=== PATIENT | female | born 1985 | race African-American/Black ===

== ENCOUNTER 2016-10-11 15:16 | Emergency (ER) ==
[2016-10-11 15:22] VITALS: BP 135/86; TEMP 98.7; BMI 40.7
[2016-10-11 16:18] LABS: FLU INTERNAL QC INTERNAL QC VALID; RAPID FLU A NEGATIVE (NEGATIVE); RAPID FLU B NEGATIVE (NEGATIVE)
--- NOTE | 2016-10-11 16:28 | ED.PDOC ---
General ED Provider: Dr. SINDI MCDANIEL Chief Complaint: Sore Throat Stated Complaint: Patient c/o of sore throat for few days. Also complains of left ear ache Time Seen by Physician: 16:25 Mode of Arrival: Walk-In Information Source: Patient Exam Limitations: No limitations Primary Care Provider: JOANN LOMBARDO Nursing and Triage Documentation Reviewed and Agree: Yes EENT Complaint Exam - Throat Complaint/Exam Onset/Duration: 7 days Symptoms Are: Still present Timimg: Constant Initial Severity: Mild Current Severity: Moderate Aggravating: Reports: Eating Alleviating: Reports: None Associated Signs and Symptoms: Reports: Dysphagia. Denies: Ear drainage Uvula Midline: No Jinny-tonsillar Fluctuence: No Scarlatinaform Rash Present: No Lesions: Absent: Lip, Gums, Tongue, Buccal Mucosa, Pharynx Exanthem: Absent: Lip, Gums, Tongue, Buccal Mucosa, Pharynx Vesicles: Absent: Lip, Gums, Tongue, Buccal Mucosa, Pharynx Stridor Present: No Sinus Tenderness Present: No Tonsillar Hypertrophy Present: No Tonsillar Exudate Present: No Jinny-tonsillar Swelling Present: No Adenopathy Present: Yes (right neck ) Splenomegaly Present: No Differential Diagnoses: Mononucleosis, Pharyngitis Review of Systems - Review Of Systems Constitutional: Reports: No symptoms Eyes: Reports: No symptoms Ears, Nose, Mouth, Throat: Reports: Ear pain (Left), Mouth pain, Throat pain Respiratory: Reports: No symptoms Cardiac: Reports: No symptoms GI: Reports: No symptoms : Reports: No symptoms Musculoskeletal: Reports: No symptoms Skin: Reports: No symptoms Neurological: Reports: No symptoms Endocrine: Reports: No symptoms Hematologic/Lymphatic: Reports: No symptoms All Other Systems: Reviewed and Negative Past Medical History - Past Medical History Previously Healthy: Yes Endocrine: Reports: DM 2 Cardiovascular: Reports: Hypertension Respiratory: Reports: None Hematological: Reports: None Gastrointestinal: Reports: None Genitourinary: Reports: None Neuro/Psych: Reports: Anxiety, Depression, Bipolar Disorder Musculoskeletal: Reports: None Cancer: Reports: None Last Menstrual Period: 09/30/16 - Surgical History General Surgical History: Reports: Unknown - Family History Family History: Reports: Unknown - Social History Smoking Status: Never smoker Hx Substance Use: No Alcohol Screening: None - Immunizations Tetanus Shot up to Date: Yes Physical Exam - Physical Exam Appearance: Obese Ill-appearing: Moderate Pain Distress: Moderate Eyes: PAIGE, EOMI, Conjunctiva clear ENT: Ears normal, Nose normal, Oropharynx normal Neck: Supple Respiratory: Airway patent, Breath sounds clear, Breath sounds equal, Respirations nonlabored Cardiovascular: Tachycardia GI/: Soft, Nontender, No masses, Bowel sounds normal, No Organomegaly Skin: Warm, Dry, Normal color Neurological: Sensation intact, Motor intact, Alert, Oriented Psychiatric: Anxious Critical Care Note - Critical Care Note Total Time (mins): 0 Course - Course Orders, Labs, Meds: Lab Review 10/11/16 15:59 Influenza A (Rapid) Negative Influenza B (Rapid) Negative Orders Category Date Time Status FLU A & B RAPID TEST [RAPID FLU A/B] Stat LAB 10/11/16 15:59 Completed MOLECULAR GROUP A STREP Stat LAB 10/11/16 15:59 Results STREP SCREEN Stat LAB 10/11/16 15:59 Results Vital Signs: Temp Pulse Resp BP Pulse Ox 10/11/16 15:17 98.7 F 120 H 20 135/86 98 Departure - Departure Time of Disposition: 16:26 Disposition: HOME SELF-CARE Discharge Problem: Sore throat symptom Instructions: Pharyngitis (ED) Condition: Stable Pt referred to PMD for follow-up: Yes Additional Instructions: Push fluids Take antibiotics as prescribed. Follow up with PCP in 3 days Prescriptions: Amoxicillin [Amoxil] 500 mg PO TID #30 capsule Allergies/Adverse Reactions: Allergies celecoxib [From Celebrex] Adverse Reaction (Verified 10/11/16 15:23) HIVES, BREAK OUT Home Medications: Ambulatory Orders Benztropine Mesylate [Cogentin] 1 mg PO BEDTIME 10/22/13 Insulin Aspart [Novolog] 10 unit SQ TID 10/22/13 Insulin Glargine,Hum.rec.anlog [Lantus] 65 unit SQ BID 10/22/13 Lamotrigine [Lamictal] 150 mg PO BEDTIME 10/22/13 Metformin HCl [Glucophage] 500 mg PO DAILY 10/22/13 Risperidone [Risperidone Odt] 1 mg PO BID 10/22/13 Simvastatin 20 mg PO DAILY 10/22/13 Amoxicillin [Amoxil] 500 mg PO TID #30 capsule 10/11/16 Disposition Discussed With: Patient
== END 2016-10-11 16:35 | disposition home or self-care (01) ==
LOC: ED 15:16
DX: J02.9 Acute pharyngitis, unspecified (principal)
CPT/HCPCS: 87651; 87804; 87880; 99283

== ENCOUNTER 2017-06-22 08:06 | Outpatient (CLI) ==
--- NOTE | 2017-06-22 10:09 | DI ---
EXAM: Upper GI series HISTORY: Other specified symptoms and signs involving circuit or and respiratory symptoms, difficult y swallowing COMPARISON: None FINDINGS: Upper GI series was performed using barium. An anterior esophageal web is present. Esophag eal motility is normal. Esophageal caliber is normal. No filling defect is seen in the esophagus. Sma ll hiatal hernia The stomach appears grossly normal without mass lesion or ulcer. The duodenum appea rs grossly normal without mass lesion or ulcer. A 13 mm dissolvable barium pill was administered and becomes lodged in the cervical esophagus at the C6-C7 level. This replaces the patient symptoms. IMPRESSION: 1. A 13 mm dissolvable barium pill was administered and becomes lodged in the cervical esophagus at the C6-C7 level. This replaces the patient symptoms. An anterior cervical web is present and this is possibly the cause, though difficult to definitively determine. Correlation with endoscopy is recomm ended. 2. Small hiatal hernia
== END 2017-06-22 08:07 | disposition home or self-care (01) ==
LOC: RAD 08:06
PROVIDERS: ATTEND Nurse Practitioner Family
DX: R09.89 Other specified symptoms and signs involving the circulatory and respiratory systems (principal)

== ENCOUNTER 2017-06-23 12:34 | Outpatient (CLI) | END 2017-06-23 12:35 | disposition home or self-care (01) | LOC: LAB 12:34 | PROVIDERS: ATTEND Nurse Practitioner Family | DX: E11.9 Type 2 diabetes mellitus without complications (principal); Z00.00 Encounter for general adult medical examination without abnormal findings | CPT/HCPCS: 36415; 80053; 80061; 83036; 84443; 85008; 85025 ==

== ENCOUNTER 2017-07-02 17:20 | Emergency (ER) ==
[2017-07-02 17:24] VITALS: BP 174/97; TEMP 100.2; BMI 36.8
--- NOTE | 2017-07-02 18:59 | ED.PDOC ---
General Stated Complaint: Fever, chills, dry cough, sore throat, ear ache. Onset 48 hours ago. Cough non productive Time Seen by Physician: 18:55 Mode of Arrival: Walk-In Information Source: Patient Exam Limitations: No limitations Nursing and Triage Documentation Reviewed and Agree: Yes Reviewed sepsis parameters & appropriate labs ordered?: Yes <SANTOS LINDO - Last Filed: 07/02/17 18:57> System Inflammatory Response Syndrome: Not Applicable <MICHA BUTLER - Last Filed: 07/02/17 20:50> ED Provider: Dr. MICHA BUTLER Chief Complaint: Fever Primary Care Provider: JOANN LOMBARDO Sepsis Protocol: For patient's 13 years and over: Temp is 96.8 and below OR 101 and greater Pulse >90 BPM Resp >20/minute Acutely Altered Mental Status Are patient's symptoms suggestive of a new infection, such as: -Pneumonia -Skin, Soft Tissue -Endocarditis -UTI -Bone, Joint Infection -Implantable Device -Acute Abdominal Infection -Wound Infection -Meningitis -Blood Stream Catheter Infection -Unknown Respiratory Complaint Exam - Respiratory Complaint/Exam Symptoms Are: Still present Timing: Intermittent Initial Severity: Moderate Current Severity: Mild Location: Throat Character: Reports: Non-productive cough, Dry cough Aggravating: Reports: URI, Deep breaths Alleviating: Reports: Upright position Associated Signs and Symptoms: Reports: Fever, Chills, Chest pain, Sore throat History of Healthcare-Acquired Pneumonia: No Related Surgical History: Reports: None Pulmonary Embolism Risk Factors: None Cardiac Risk Factors: Reports: None Pseudomonas Risk Factors: Reports: None Tuberculosis Risk Factors: Reports: None Status Asthmaticus Risk Factors: Reports: None Home Oxygen Use: No Recent Stress Test: No Recent Echo/LV Function: No Current Antibiotic Use: No Current Asthma Medication Use: No Differential Diagnoses: URI, Influenza, Other (otitis/ strep throat) <SANTOS LINDO - Last Filed: 07/02/17 18:57> Review of Systems - Review Of Systems Constitutional: Reports: Chills, Fever, Malaise Eyes: Reports: No symptoms Ears, Nose, Mouth, Throat: Reports: Ear pain, Throat pain. Denies: Epistaxis, Mouth swelling Respiratory: Reports: Cough. Denies: Orthopnea, Short of air, Stridor, Wheezing Cardiac: Reports: No symptoms GI: Reports: No symptoms : Reports: No symptoms Musculoskeletal: Reports: No symptoms, Muscle pain Neurological: Reports: No symptoms <SANTOS LINDO - Last Filed: 07/02/17 18:57> - Review Of Systems Constitutional: Reports: No symptoms Eyes: Reports: No symptoms Ears, Nose, Mouth, Throat: Reports: No symptoms Respiratory: Reports: No symptoms Cardiac: Reports: No symptoms GI: Reports: No symptoms : Reports: No symptoms Musculoskeletal: Reports: No symptoms Skin: Reports: No symptoms Neurological: Reports: No symptoms Endocrine: Reports: No symptoms Hematologic/Lymphatic: Reports: No symptoms All Other Systems: Reviewed and Negative <MICHA BUTLER - Last Filed: 07/02/17 20:50> Past Medical History - Past Medical History Previously Healthy: Yes Endocrine: Reports: DM 2 Cardiovascular: Reports: Hypertension Respiratory: Reports: None Hematological: Reports: None Gastrointestinal: Reports: None Genitourinary: Reports: None Neuro/Psych: Reports: Anxiety, Depression, Bipolar Disorder Musculoskeletal: Reports: None Cancer: Reports: None Last Menstrual Period: 07/01/17 - Surgical History General Surgical History: Reports: Unknown - Family History Family History: Reports: Unknown - Social History Smoking Status: Never smoker Hx Substance Use: No Alcohol Screening: None - Immunizations Tetanus Shot up to Date: No <SANTOS LINDO - Last Filed: 07/02/17 18:57> Physical Exam - Physical Exam Appearance: Ill-appearing, No pain distress Ill-appearing: Mild Pain Distress: None Eyes: PAIGE, EOMI, Conjunctiva clear ENT: Ears normal (Rt TM Full and slightly injected), Oropharynx normal Respiratory: Airway patent, Breath sounds clear, Breath sounds equal (No crackles or wheezes) Cardiovascular: RRR, Pulses normal GI/: Soft, Nontender, No masses Musculoskeletal: Normal strength Skin: Warm, Dry Neurological: Sensation intact, Motor intact, Cranial nerves intact, Alert, Oriented Psychiatric: Affect appropriate, Mood appropriate <SANTOS LINDO - Last Filed: 07/02/17 18:57> Critical Care Note - Critical Care Note Total Time (mins): 15 <MICHA BUTLER - Last Filed: 07/02/17 20:50> Course - Course Hematology/Chemistry: 07/02/17 19:16 07/02/17 19:16 <MICHA BUTLER - Last Filed: 07/02/17 20:50> - Course Orders, Labs, Meds: Lab Review 07/02/17 07/02/17 07/02/17 17:50 19:16 19:16 WBC 8.82 RBC 4.68 Hgb 7.4 L Hct 26.4 L MCV 56.4 L MCH 15.8 L MCHC 28.0 L RDW Coeff of [place] 19.9 H Plt Count 379 Immature Gran % (Auto) 0.2 Neut % (Auto) 64.9 Lymph % (Auto) 26.1 [place] % (Auto) 6.3 Eos % (Auto) 2.2 Baso % (Auto) 0.3 Immature Gran # (Auto) 0.0 Neut # 5.7 Lymph # 2.3 [place] # 0.6 Eos # 0.2 Baso # 0.0 Sodium 139 Potassium 3.4 L Chloride 106 Carbon Dioxide 24 Anion Gap 12.4 BUN 3 L Creatinine 0.83 Estimated GFR (MDRD) 97.00 BUN/Creatinine Ratio 3.61 Glucose 205 H Calcium 9.0 Total Bilirubin < 0.3 AST 19 ALT 11 L Alkaline Phosphatase 121 H Total Protein 7.4 Albumin 3.3 L Globulin 4.1 Albumin/Globulin Ratio 0.80 Influenza A (Rapid) Positive by naat H Influenza B (Rapid) Negative by naat Orders Category Date Time Status CBC W/ AUTO DIFF Stat LAB 07/02/17 19:16 Completed CMP [COMPREHENSIVE METABOLIC PANEL] Stat LAB 07/02/17 19:16 Completed MOLECULAR FLU A & B [FLU A/B MOLECULAR] Stat LAB 07/02/17 17:50 Completed RAPID STREP SCREEN [MOLECULAR GROUP A STREP] Stat LAB 07/02/17 17:50 Completed CHEST, 2 VIEWS PA & LAT Stat RADS 07/02/17 19:06 Taken Vital Signs: Temp Pulse Resp BP Pulse Ox 07/02/17 17:22 100.2 F H 132 H 20 174/97 H 100 Departure - Departure Time of Disposition: 19:05 Pt referred to PMD for follow-up: Yes <SANTOS LINDO - Last Filed: 07/02/17 18:57> - Departure IPMP verified?: No Disposition Discussed With: Patient <MICHA BUTLER - Last Filed: 07/02/17 20:50> - Departure Disposition: HOME SELF-CARE Discharge Problem: Influenza A Otitis Qualifiers: Laterality: right Qualified Code(s): H66.91 - Otitis media, unspecified, right ear Instructions: Influenza (ED), Ear Infection (ED) Condition: Fair Additional Instructions: Follow up with your primary care provider as soon as possible Take Meds as directed Take Tylenol as needed for pain Follow up ER if worsens Prescriptions: Oseltamivir Phosphate [Tamiflu] 75 mg PO Q12HR #10 capsule Amoxicillin 875 mg PO BID #20 cap Allergies/Adverse Reactions: Allergies celecoxib [From Celebrex] Adverse Reaction (Verified 07/02/17 17:24) HIVES, BREAK OUT Home Medications: Ambulatory Orders Insulin Aspart [Novolog] 10 unit SQ TID 10/22/13 Insulin Glargine,Hum.rec.anlog [Lantus] 65 unit SQ BID 10/22/13 Lamotrigine [Lamictal] 150 mg PO BEDTIME 10/22/13 Metformin HCl [Glucophage] 500 mg PO DAILY 10/22/13 Risperidone [Risperidone Odt] 1 mg PO BID 10/22/13 Amoxicillin 875 mg PO BID #20 cap 07/02/17 Oseltamivir Phosphate [Tamiflu] 75 mg PO Q12HR #10 capsule 07/02/17 <SANTOS LINDO - Last Filed: 07/02/17 18:57> <MICHA BUTLER - Last Filed: 07/02/17 20:50> Attending Provider: ATTENDING PROVIDER: DATE OF SERVICE: 07/02/17 SUBJECTIVE: This 32 year old BLACK/ F was hospitalized . REVIEW OF SYSTEMS: CONSTITUTIONAL: No night sweats. No fatigue, malaise, lethargy. No fever or chills. HEENT: Eyes: No visual changes. No eye pain. No eye discharge. ENT: No runny nose. No epistaxis. No sinus pain. No odynophagia. No congestion. RESPIRATORY: No cough, no congestion. No hemoptysis. No shortness of breath. CARDIOVASCULAR: No angina symptoms. No CHF symptoms. No atypical chest pain for CAD. No palpitations. No orthopnea.. GASTROINTESTINAL: No abdominal pain. No nausea or vomiting. No diarrhea or constipation. No hematemesis. No hematochezia. GENITOURINARY: No urgency. No frequency. No dysuria. No hematuria. No obstructive symptoms. No discharge. No pain. No significant abnormal bleeding. MUSCULOSKELETAL: No musculoskeletal pain; no joint swelling. NEUROLOGICAL: Awake, alert, oriented to time, place and person. No headache. No neck pain. No syncope. No seizures. No dizziness. PSYCHIATRIC: Not anxious. No depression. No suicidal thoughts. No homicidal thoughts. SKIN: No rash. No lesions. No wounds. ENDOCRINE: No unexplained weight loss. No weight gain. HEMATOLOGIC/LYMPHATIC: No anemia. No purpura. No petechiae. No prolonged or excessive bleeding. No palpable lymph nodes. PHYSICAL EXAMINATION: GENERAL: The patient is awake, alert and oriented, lying/sitting in bed in no distress. VITAL SIGNS: Temperature 100.2 F, Pulse 132, Respiratory Rate 20, BP 174/97, Pulse Ox 100% HEENT: Head normocephalic, atraumatic. Eyes: Extraocular muscles are intact. Pupils are equal, round and reactive to light and accommodation. Ears: No lesions. Nose appeared normal. Throat: No exudate or erythema. NECK: Supple. No JVD, no carotid bruit. No lymphadenopathy or thyromegaly. LUNGS: Clear to auscultation. Percussion note normal. Chest symmetrical. HEART: S1, S2, no S3. No murmurs. No cyanosis or clubbing. No ascites. Pulses: Dorsalis pedis and posterior tibial pulses +1 to +2 both sides. ABDOMEN: Soft. Non-tender. Bowel sounds active. No CVA tenderness. No mass felt. EXTREMITIES: No edema. Full range of motion of all extremities, equal. NEUROLOGIC: No focal deficit. Cranial nerves II through XII are grossly intact. No headache, no double vision or headache. SKIN: Warm and dry. Intact. Turgor-normal. LYMPHATIC: No palpable lymph nodes/no lymphedema. MUSCULOSKELETAL: Normal joints with no swelling. Muscle tone is normal. LAB REVIEW: 07/02/17 19:16 07/02/17 19:16 07/02/17 19:16: Sodium 139, Potassium 3.4 L, Chloride 106, Carbon Dioxide 24, Anion Gap 12.4, BUN 3 L, Creatinine 0.83, Estimated GFR (MDRD) 97.00, BUN/ Creatinine Ratio 3.61, Glucose 205 H, Calcium 9.0, Total Bilirubin < 0.3, AST 19 , ALT 11 L, Alkaline Phosphatase 121 H, Total Protein 7.4, Albumin 3.3 L, Globulin 4.1, Albumin/Globulin Ratio 0.80 07/02/17 19:16: WBC 8.82, RBC 4.68, Hgb 7.4 L, Hct 26.4 L, MCV 56.4 L, MCH 15.8 L, MCHC 28.0 L, RDW Coeff of [place] 19.9 H, Plt Count 379, Immature Gran % (Auto) 0.2, Neut % (Auto) 64.9, Lymph % (Auto) 26.1, [place] % (Auto) 6.3, Eos % (Auto) 2.2, Baso % (Auto) 0.3, Immature Gran # (Auto) 0.0, Neut # 5.7, Lymph # 2.3, [place] # 0.6, Eos # 0.2, Baso # 0.0 07/02/17 17:50: Influenza A (Rapid) Positive by naat H, Influenza B (Rapid) Negative by naat ASSESSMENT: Please see below. PLAN: Plan and coordination of the patient's care discussed in the presence of [employer]ate [employer] Service Merchandiser and nurse. EDUCATION: CONDITION: SCRIBED BY: MIHCA BUTLER, Chute Worker scribed while in presence of service performed by on 07/02/17 (2048) Have reviewed lab adn positive for influenza A. Lab ordered due to insulin dependent diabetic. Explained case to Dr Munoz evening physician who agreed to accept patient through Discharge (SANTOS LINDO)
--- NOTE | 2017-07-02 20:52 | DI ---
Exam: Two x-rays of the chest. Comparison: None available. Reason for exam: Cough and congestion. FINDINGS: No pneumothorax, pleural effusion, or focal consolidation. The cardiac silhouette is not enlarged. There is elevation of the right hemidiaphragm. The imaged osseous structures appear gross ly unremarkable without acute fracture. Impression: No acute cardiopulmonary process.
== END 2017-07-02 21:00 | disposition home or self-care (01) ==
LOC: ED 17:20
DX: J09.X2 Influenza due to identified novel influenza A virus with other respiratory manifestations (principal); H66.91 Otitis media, unspecified, right ear; E11.9 Type 2 diabetes mellitus without complications; I10 Essential (primary) hypertension
CPT/HCPCS: 36415; 80053; 85025; 87502; 87651; 99283

== ENCOUNTER 2017-08-09 15:14 | Emergency (ER) ==
[2017-08-09] MEDS ORDERED: SODIUM CHLORIDE 1,000 ML IV STA (15:17)
[2017-08-09 15:23] VITALS: BP 127/95; TEMP 97.9; BMI 36.4
--- NOTE | 2017-08-09 17:11 | CT ---
EXAM: CT soft tissue neck with without contrast HISTORY: Globus sensation. COMPARISON: Cervical spine x-rays 08/19/2011 TECHNIQUE: Serial axial images of the soft tissues of the neck were obtained pre and post contrast. These were viewed in multiple planes. FINDINGS: Limited views. Intracranial contents are normal. The orbital globes retrobulbar structure s are normal. The paranasal sinuses demonstrate mild mucosal thickening. The parotid and submandibu lar glands are normal. There are few scattered nonenlarged lymph nodes. The nasal and hypopharynx a re clear. Parapharyngeal fat is normal. Thyroid is normal. The lung apices are clear. The epiglott is is normal. The osseous structures are unremarkable. IMPRESSION: 1. No abnormality to account for patient's symptoms. 2. Few scattered lymph nodes are nonpathologically enlarged and may be reactive.
--- NOTE | 2017-08-09 17:19 | ED.PDOC ---
General ED Provider: Dr. SANTOS VELEZ-ER Chief Complaint: Sore Throat Stated Complaint: ketan had this for a long time--i will occ have trouble swallowing --have hearburn but dont take meds eevery day for it Time Seen by Physician: 15:20 Mode of Arrival: Walk-In Information Source: Patient, Assisted Living Primary Care Provider: JOANN LOMBARDO Nursing and Triage Documentation Reviewed and Agree: Yes Reviewed sepsis parameters & appropriate labs ordered?: Yes System Inflammatory Response Syndrome: Not Applicable Sepsis Protocol: For patient's 13 years and over: Temp is 96.8 and below OR 101 and greater Pulse >90 BPM Resp >20/minute Acutely Altered Mental Status Are patient's symptoms suggestive of a new infection, such as: -Pneumonia -Skin, Soft Tissue -Endocarditis -UTI -Bone, Joint Infection -Implantable Device -Acute Abdominal Infection -Wound Infection -Meningitis -Blood Stream Catheter Infection -Unknown EENT Complaint Exam - Throat Complaint/Exam Onset/Duration: severalk weeks Symptoms Are: Still present Timimg: Constant Initial Severity: Mild Current Severity: Mild Aggravating: Reports: Eating Associated Signs and Symptoms: Reports: Dysphagia, Foreign body sensation. Denies: Fever, Drooling, Chills, Cough, Wheezing, Hoarseness, Sinus discomfort, Nasal congestion, Difficulty breathing, Lethargy, Irritability, Decreased activity, Vomiting, Diarrhea, Decreased hearing, Ear drainage Uvula Midline: Yes Jinny-tonsillar Fluctuence: No Scarlatinaform Rash Present: No Stridor Present: No Sinus Tenderness Present: No Tonsillar Hypertrophy Present: No Tonsillar Exudate Present: No Jinny-tonsillar Swelling Present: No Adenopathy Present: No Splenomegaly Present: No Review of Systems - Review Of Systems Constitutional: Reports: No symptoms Eyes: Reports: No symptoms Ears, Nose, Mouth, Throat: Reports: Throat pain, Throat swelling Respiratory: Reports: No symptoms Cardiac: Reports: No symptoms GI: Reports: No symptoms : Reports: No symptoms Musculoskeletal: Reports: No symptoms Skin: Reports: No symptoms Neurological: Reports: No symptoms Endocrine: Reports: No symptoms Hematologic/Lymphatic: Reports: No symptoms All Other Systems: Reviewed and Negative Past Medical History - Past Medical History Previously Healthy: Yes Endocrine: Reports: DM 2 Cardiovascular: Reports: Hypertension Respiratory: Reports: None Hematological: Reports: None Gastrointestinal: Reports: None Genitourinary: Reports: None Neuro/Psych: Reports: Anxiety, Depression, Bipolar Disorder Musculoskeletal: Reports: None Cancer: Reports: None Last Menstrual Period: 07/20/2017 - Surgical History General Surgical History: Reports: Unknown - Family History Family History: Reports: Unknown - Social History Smoking Status: Never smoker Hx Substance Use: No Alcohol Screening: None Lives: With family - Immunizations Tetanus Shot up to Date: Yes Physical Exam - Physical Exam Appearance: Well-appearing, No pain distress, Well-nourished Pain Distress: Mild Eyes: PAIGE, EOMI, Conjunctiva clear ENT: Ears normal, Nose normal, Oropharynx normal Neck: Supple Respiratory: Airway patent, Breath sounds clear, Breath sounds equal, Respirations nonlabored Cardiovascular: RRR GI/: Soft, Nontender, No masses, Bowel sounds normal, No Organomegaly Musculoskeletal: Normal strength Skin: Warm, Dry, Normal color Neurological: Sensation intact Psychiatric: Affect appropriate, Anxious Interpretation - Radiology Interpretation Radiology Interpretation By: Radiologist Radiology Results: Negative Exam Interpreted: CT Scan Re-Evaluation - Re-Evaluation Time of Re-Evaluation: 17:19 Status: Unchanged, Improved Vital Signs Stable: Yes Pain Level: o Appearance: NAD Lungs: Clear Skin: Warm and Dry Neuro: Alert and Oriented X3 CV: RRR Critical Care Note - Critical Care Note Total Time (mins): 0 Course - Course Hematology/Chemistry: 08/09/17 15:23 08/09/17 15:23 Orders, Labs, Meds: Lab Review 08/09/17 08/09/17 08/09/17 15:23 15:23 15:23 WBC 9.59 RBC 5.12 Hgb 8.1 L Hct 28.9 L MCV 56.4 L MCH 15.8 L MCHC 28.0 L RDW Coeff of [place] 21.0 H Plt Count 564 H Immature Gran % (Auto) 0.2 Neut % (Auto) 59.4 Lymph % (Auto) 33.5 [place] % (Auto) 5.1 Eos % (Auto) 1.6 Baso % (Auto) 0.2 Immature Gran # (Auto) 0.0 Neut # (Auto) 5.7 Lymph # (Auto) 3.2 [place] # (Auto) 0.5 Eos # (Auto) 0.2 Baso # (Auto) 0.0 Anisocytosis 2+ Microcytosis 2+ Sodium 136 Potassium 4.0 Chloride 101 Carbon Dioxide 21 Anion Gap 18.0 BUN 3 L Creatinine 0.82 Estimated GFR (MDRD) 98.00 BUN/Creatinine Ratio 3.65 Glucose 230 H Calcium 9.1 Total Bilirubin 0.3 AST 9 L ALT 9 L Alkaline Phosphatase 113 H Total Protein 7.6 Albumin 3.5 Globulin 4.1 Albumin/Globulin Ratio 0.85 TSH 0.915 Free T4 0.90 Serum , Qual Negative Influ A Molecular Assay Influ B Molecular Assay 08/09/17 15:23 WBC RBC Hgb Hct MCV MCH MCHC RDW Coeff of [place] Plt Count Immature Gran % (Auto) Neut % (Auto) Lymph % (Auto) [place] % (Auto) Eos % (Auto) Baso % (Auto) Immature Gran # (Auto) Neut # (Auto) Lymph # (Auto) [place] # (Auto) Eos # (Auto) Baso # (Auto) Anisocytosis Microcytosis Sodium Potassium Chloride Carbon Dioxide Anion Gap BUN Creatinine Estimated GFR (MDRD) BUN/Creatinine Ratio Glucose Calcium Total Bilirubin AST ALT Alkaline Phosphatase Total Protein Albumin Globulin Albumin/Globulin Ratio TSH Free T4 Serum , Qual Influ A Molecular Assay Negative by naat Influ B Molecular Assay Negative by naat Orders Category Date Time Status NPO REMINDER: IMAGING ONCE CARE 08/09/17 15:18 Completed ED IV/MEDIPORT/POWERPORT .ONCE EMERGENCY 08/09/17 15:17 Active CBC W/ AUTO DIFF Stat LAB 08/09/17 15:23 Completed COMPREHENSIVE METABOLIC PANEL Stat LAB 08/09/17 15:23 Completed FLU A/B MOLECULAR Stat LAB 08/09/17 15:23 Completed FREE T4 (FREE THYROXINE) Stat LAB 08/09/17 15:23 Completed MOLECULAR GROUP A STREP Stat LAB 08/09/17 15:23 Completed RBC MORPHOLOGY Stat LAB 08/09/17 15:23 Completed SERUM Stat LAB 08/09/17 15:23 Completed TSH [THYROID STIMULATING HORMONE] Stat LAB 08/09/17 15:23 Completed 0.9 % Sodium Chloride [Saline Flush] MEDS 08/09/17 15:17 Ordered 1 syr IVF PRN PRN Sodium Chloride 0.9% [Sodium Chloride] 1,000 ml MEDS 08/09/17 15:17 Active IV 100 mls/hr CT SOFT TISSUE NECK W/WO CONT Stat RADS 08/09/17 15:18 Completed Medications Generic Name Dose Route Start Last Admin Trade Name Freq PRN Reason Stop Dose Admin Sodium Chloride 1,000 mls @ 100 mls/hr 08/09/17 15:17 08/09/17 15:34 Sodium Chloride IV 08/10/17 01:16 100 mls/hr .Q10H STA Administration Sodium Chloride 1 syr 08/09/17 15:17 08/09/17 15:20 Saline Flush IVF 1 syr PRN PRN Administration To flush IV Vital Signs: Temp Pulse Resp BP Pulse Ox 08/09/17 15:14 97.9 F 118 H 20 127/95 H 99 Departure - Departure Time of Disposition: 17:19 Disposition: HOME SELF-CARE Discharge Problem: Globus sensation Instructions: Chronic Dysphagia (DC), Dysphagia (ED) Condition: Good Pt referred to PMD for follow-up: Yes IPMP verified?: No Additional Instructions: hold metformin 48hrs---zantac 150mg bid #30--talk to your pcp about ent referral --f/u with pcp about anemia Allergies/Adverse Reactions: Allergies celecoxib [From Celebrex] Adverse Reaction (Verified 07/02/17 17:24) HIVES, BREAK OUT Home Medications: Ambulatory Orders Insulin Aspart [Novolog] 10 unit SQ TID 10/22/13 Insulin Glargine,Hum.rec.anlog [Lantus] 65 unit SQ BID 10/22/13 Lamotrigine [Lamictal] 150 mg PO BEDTIME 10/22/13 Metformin HCl [Glucophage] 500 mg PO DAILY 10/22/13 Risperidone [Risperidone Odt] 1 mg PO BID 10/22/13 Disposition Discussed With: Patient, Family
== END 2017-08-09 17:33 | disposition home or self-care (01) ==
LOC: ED 15:14
DX: R13.10 Dysphagia, unspecified (principal)
CPT/HCPCS: 36415; 80053; 84439; 84443; 84703; 85008; 85025; 87502; 87651; 96360; 96361; 99283

== ENCOUNTER 2017-08-27 07:54 | Outpatient (CLI) | END 2017-08-27 07:55 | disposition home or self-care (01) | LOC: LAB 07:54 | PROVIDERS: ATTEND Nurse Practitioner Family | DX: D50.9 Iron deficiency anemia, unspecified (principal); E78.1 Pure hyperglyceridemia; E78.5 Hyperlipidemia, unspecified | CPT/HCPCS: 36415; 80061; 82607; 82728; 82746; 83540; 83550; 84466; 85008; 85025; 85045 ==

== ENCOUNTER 2017-09-22 14:11 | Outpatient (CLI) | END 2017-09-22 14:12 | disposition home or self-care (01) | LOC: LAB 14:11 | PROVIDERS: ATTEND Physician Assistant | DX: R13.10 Dysphagia, unspecified (principal); E11.9 Type 2 diabetes mellitus without complications | CPT/HCPCS: 36415; 80053; 80061; 83036; 84436; 84443; 85025 ==

== ENCOUNTER 2017-09-23 10:30 | Outpatient (CLI) ==
--- NOTE | 2017-09-23 11:53 | US ---
EXAM: THYROID ULTRASOUND HISTORY: Difficulty swallowing FINDINGS: Ultrasound thyroid. Real time graf-scale ultrasound and color Doppler imaging. COMPARISON: None. The right thyroid lobe measures 2.4 x 1.3 x 2.0 cm. The isthmus measures 0.64 cm. The left thyroid lobe measures 5.0 x 1.3 x 2.1 cm. RIGHT LOBE: No nodules. ISTHMUS: No nodules. LEFT LOBE: No nodules. GENERAL: Diffusely homogeneous thyroid tissue with normal vascularity. No calcifications or nodules . IMPRESSION: Prominent gland size. Otherwise unremarkable study.
== END 2017-09-23 10:31 | disposition home or self-care (01) ==
LOC: RAD 10:30
PROVIDERS: ATTEND Physician Assistant
DX: R13.10 Dysphagia, unspecified (principal)

== ENCOUNTER 2017-11-16 10:01 | Outpatient (CLI) | END 2017-11-16 10:02 | disposition home or self-care (01) | LOC: LAB 10:01 | PROVIDERS: ATTEND Nurse Practitioner | DX: E04.9 Nontoxic goiter, unspecified (principal) | CPT/HCPCS: 36415; 84439; 84443; 84480; 86376 ==

== ENCOUNTER 2017-12-15 12:35 | Outpatient (CLI) ==
--- NOTE | 2017-12-15 13:54 | CT ---
EXAM: CT head without contrast HISTORY: Dizziness with migraines for 2 years presenting with dizziness and slurred speech for 3 week s COMPARISON: CT head 10/07/2013 TECHNIQUE: Serial axial images of the brain were obtained from the skull base to the vertex without IV contrast. FINDINGS: The ventricles, cisterns and sulci are normal. The graf-white matter junction is well dena ntained. No midline shift or mass is identified. There is no abnormal intra or extra-axial fluid co llection. The paranasal sinuses and mastoid air cells are clear. The osseous calvarium is intact. IMPRESSION: No acute intracranial abnormality or hemorrhage. If further evaluation is clinically ind icated, MRI may be obtained.
== END 2017-12-15 12:36 | disposition home or self-care (01) ==
LOC: RAD 12:35
PROVIDERS: ATTEND Physician Assistant
DX: R42 Dizziness and giddiness (principal)

== ENCOUNTER 2018-10-28 08:42 | Outpatient (CLI) | END 2018-10-28 08:43 | disposition home or self-care (01) | LOC: LAB 08:42 | PROVIDERS: ATTEND Nurse Practitioner Family | DX: E11.9 Type 2 diabetes mellitus without complications (principal); Z79.4 Long term (current) use of insulin | CPT/HCPCS: 36415; 80053; 80061; 82043; 82306; 82607; 83036 ==

== ENCOUNTER 2019-01-16 14:27 | Outpatient (CLI) | END 2019-01-16 14:56 | disposition short-term general hospital (02) | LOC: AMBL 14:27 | PROVIDERS: ATTEND Family Medicine | DX: R06.03 Acute respiratory distress (principal); R22.1 Localized swelling, mass and lump, neck; R00.0 Tachycardia, unspecified; E11.9 Type 2 diabetes mellitus without complications ==